=== PATIENT | male | born 1955 | race Caucasian/White ===

== ENCOUNTER 2017-02-03 21:43 | Emergency (ER) | payer BC ==
[~2017-02-03] VITALS: Ht 170.2 cm; Wt 81.6 kg
[2017-02-03 23:10] VITALS: BP 158/89; PULSE 109; RESP 16; TEMP 98.2; O2SAT 96
--- NOTE | 2017-02-03 23:10 | NUR ---
Patient to ER bed 7 to gown for evaluation. Side rails up. Report recieved from Marivel SMITH.
--- NOTE | 2017-02-03 23:15 | NUR ---
pt in bed 7 with c/o harsha eye pain , Dr Bhatti aware.
--- NOTE | 2017-02-03 23:22 | NUR ---
ER at bedside examining patient.
[2017-02-04 00:14] VITALS: BP 145/88; PULSE 99; RESP 16; TEMP 98; O2SAT 97
--- NOTE | 2017-02-04 00:14 | NUR ---
Patient given written and verbal discharge instructions and verbalizes understanding. ER MD discussed with patient the results and treatment provided. Patient in stable condition. ID arm band removed. Rx of Azithromycin tab, Bleph-10 and Promethazine hcl/dextromethorphan given. Patient educated on pain management and to follow up with PMD. Pain Scale 0/10. Opportunity for questions provided and answered.
== END 2017-02-04 00:14 | disposition home or self-care (01) ==
LOC: SED 21:43
DX: H10.213 Acute toxic conjunctivitis, bilateral (principal); J02.9 Acute pharyngitis, unspecified; R03.0 Elevated blood-pressure reading, without diagnosis of hypertension
CPT/HCPCS: 99283